=== PATIENT | male | born 1990 | race Two or more races ===

== ENCOUNTER 2017-08-17 20:04 | Emergency (ER) | payer MEDICAID ==
[2017-08-17] MEDS ORDERED: HYDROcod/ACET 5/325 Prepack 4 PO STA (20:18)
[2017-08-17] MEDS ORDERED: CYCLOBENZAPRINE 10 MG TABLET PO STA (20:18)
[2017-08-17] MEDS ORDERED: HYDROcod/ACETAM 5/325 MG TABLET PO STA (20:18)
--- NOTE | 2017-08-17 20:20 | ED Physician Documentation ---
History of Present Illness - Stated complaint Stated Complaint: BODY ACHE - Chief complaint Chief Complaint: General - History obtained from History obtained from: Patient - History of Present Illness Timing: Other (He was wrestling with a friend 2 days ago, he developed a stiff neck after that and then chest pain radiating to the back on the right side that is worse with deep breathing and is getting a lot of spasms. It is worse if he rotates his neck to the right. No fevers, chills, cough.) Review of Systems Constitutional: denies: Fever, Chills Cardiac: reports: Chest pain / pressure. denies: Palpitations, Pedal edema, Calf pain Respiratory: denies: Dyspnea PD PAST MEDICAL HISTORY - Past Medical History Past Medical History: No - Past Surgical History Past Surgical History: No - Present Medications Home Medications: Ambulatory Orders Medication Instructions Recorded Confirmed Cyclobenzaprine [Flexeril] 10 mg PO TID PRN #14 tablet 08/17/17 HYDROcod/ACETAM 5/325 [[place] 5/325] 1 - 2 ea PO Q6H PRN #7 tablet 08/17/17 Ibuprofen [Motrin] 800 mg PO Q8H PRN #30 tablet 08/17/17 - Allergies Allergies/Adverse Reactions: Allergies Allergy/AdvReac Type Severity Reaction Status Date / Time No Known Drug Allergies Allergy Verified 08/17/17 20:12 - Social History Does the pt smoke?: Yes Does the pt drink ETOH?: Yes - Immunizations Immunizations are current?: No - POLST Patient has POLST: No PD ED PE NORMAL - Vitals Vital signs reviewed: Yes - General General: Alert and oriented X 3, No acute distress - HEENT HEENT: PERRL, EOMI - Neck Neck: No bony TTP, Other (Tender over the right sternocleidomastoid low down and difficulty with rotation of the neck especially to the right) - Cardiac Cardiac: RRR, No murmur - Respiratory Respiratory: No respiratory distress, Clear bilaterally - Abdomen Abdomen: Non tender - Back Back: No spinal TTP, Other (Tender over the upper parathoracic muscles on the right and also the pectoral muscles on the right.) - Derm Derm: Normal color, Warm and dry - Extremities Extremities: No deformity, No tenderness to palpate, Normal ROM s pain, No edema , No calf tenderness / cord - Neuro Neuro: Alert and oriented X 3, Normal speech Results - Vitals Vitals: Vital Signs - 24 hr 08/17/17 08/17/17 20:10 20:27 Temperature 37.1 C Heart Rate 86 Respiratory 16 Rate Blood Pressure 147/85 H 132/88 H O2 Saturation 99 95 Oxygen O2 Source Nasal cannula - Rads (name of study) 2 view chest Radiology: EMP read contemporaneously (Normal) c spine XR Radiology: EMP read contemporaneously (normal) Departure - Departure Disposition: Home, Self Care Clinical Impression: Chest wall pain Neck sprain Qualifiers: Encounter type: initial encounter Qualified Code(s): S13.9XXA - Sprain of joints and ligaments of unspecified parts of neck, initial encounter Condition: Good Record reviewed to determine appropriate education?: Yes Instructions: ED Strain Chest Wall, ED Spasm Neck No Injury Prescriptions: Cyclobenzaprine [Flexeril] 10 mg PO TID PRN #14 tablet PRN Reason: Pain HYDROcod/ACETAM 5/325 [[place] 5/325] 1 - 2 ea PO Q6H PRN #7 tablet PRN Reason: Pain Ibuprofen [Motrin] 800 mg PO Q8H PRN #30 tablet PRN Reason: PAIN &/OR FEVER Comments: Call your doctor to arrange a follow-up appointment, make the next available appointment. In the interim, return anytime if worse or if new symptoms develop. Do not drink or drive while taking narcotic pain medication. Note that many narcotic pain relievers also contain Tylenol/acetaminophen. Please ensure that your total dose of acetaminophen from all sources does not exceed 3 g (3000 mg) per day. You may get constipated while on this medication. Take a stool softener such as Colace twice a day while you are on it. Also add an iqby-wdj-pdaaqwe laxative such as senna or MiraLAX on any day that you do not have a bowel movement. If you received a narcotic pain medication or sedative while in the emergency department, do not drive for the next 24 hours. Your blood pressure was elevated today on check into the emergency department. This does not mean that you have hypertension, it is a common phenomenon to come to the emergency department and have elevated blood pressure. I recommend that you see your primary care physician within the week to have it rechecked when you are feeling better.
--- NOTE | 2017-08-17 20:58 | XRAY Report ---
EXAM: CHEST RADIOGRAPHY EXAM DATE: 08/17/2017 08:34 PM. CLINICAL HISTORY: Chest and neck inj. COMPARISON: None. TECHNIQUE: 2 views. FINDINGS: Lungs/Pleura: No focal opacities evident. No pleural effusion. No pneumothorax. Normal volumes. Mediastinum: Heart and mediastinal contours are unremarkable. Other: None. IMPRESSION: Negative chest. [facility] Referring Provider Line: [phone] SITE ID: [id number]
--- NOTE | 2017-08-17 20:58 | XRAY Preliminary Report ---
Exam: XR CHEST 2 VIEW X-RAY IMPRESSION: Negative chest. [facility] SITE ID: [id number]
--- NOTE | 2017-08-17 21:01 | XRAY Preliminary Report ---
Exam: XR CERVICAL SPINE 2 VIEW IMPRESSION: 1. No fracture or subluxation of the cervical spine. [facility] SITE ID: [id number]
--- NOTE | 2017-08-17 21:02 | XRAY Report ---
EXAM: CERVICAL SPINE RADIOGRAPHY EXAM DATE: 08/17/2017 08:50 PM. CLINICAL HISTORY: Chest and neck inj. COMPARISONS: None. TECHNIQUE: 3 views. FINDINGS: Alignment: No subluxation or scoliosis. Bones: The cervical vertebral bodies and posterior elements are well visualized from the skull base t hrough C7-T1. No fractures or bone lesions. Disks: Disk height is maintained. Facets: Facet joints appear in satisfactory alignment. Soft Tissues: Prevertebral soft tissues are within normal limits. IMPRESSION: 1. No fracture or subluxation of the cervical spine. [facility] Referring Provider Line: [phone] SITE ID: [id number]
[2017-08-17 21:07] VITALS: BP 135/81
== END 2017-08-17 21:09 | disposition home or self-care (01) ==
LOC: ED 20:04
DX: R07.89 Other chest pain (principal); S13.9XXA Sprain of joints and ligaments of unspecified parts of neck, initial encounter; X58.XXXA Exposure to other specified factors, initial encounter; Y93.72 Activity, wrestling; R03.0 Elevated blood-pressure reading, without diagnosis of hypertension
CPT/HCPCS: 71046; 72040; 99283; A9270